=== PATIENT | male | born 2000 | race Caucasian/White ===

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

== ENCOUNTER 2021-09-23 10:46 | Emergency (ER) | payer OTHER ==
[~2021-09-23] VITALS: Ht 165.1 cm; Wt 56.7 kg
[~2021-09-23 10:46] MED LIST changes: +LORA-476 PO
[2021-09-23 10:47] VITALS: BP 142/95
--- NOTE | 2021-09-23 10:50 | NUR ---
PT AMBULATED TO BED 9 WITH STEADY GAIT
--- NOTE | 2021-09-23 10:54 | NUR ---
21 Y/O MALE BIB SELF FOR REFILL OF ATIVAN FOR ANXIETY, PER PT HE HAS BEEN OUT OF ATIVAN X6 MONTHS. CALLED HIS PSYCHIATRIST FOR A REFILLX2 AND THEY NEVER CALLED HIM BACK. STATES THAT HIS LAST PANIC ATTACK WAS 1 WEEK AGO. DENIES ANY FEELINGS OF ANXIETY AT THE MOMENT, DENIES ANY OTHER MEDICAL COMPLAINTS AT THIS TIME PMH: ANXIETY NKA
--- NOTE | 2021-09-23 11:08 | NUR ---
LAKISHA FISH AT BEDSIDE FOR FURTHER EVAL
[2021-09-23] MEDS ORDERED: HYDR25CA1 PO (11:20)
--- NOTE | 2021-09-23 11:40 | NUR ---
Patient discharged with v/s stable. Written and verbal after care instructions ABOUT PANIC ATTACK given and explained. Patient alert, oriented and verbalized understanding of instructions. Ambulatory with steady gait. All questions addressed prior to discharge. ID band removed. Patient advised to follow up with PMD. Rx of VISTARIL given. Patient educated on indication of medication including possible reaction and side effects. Opportunity to ask questions provided and answered.
== END 2021-09-23 11:40 | disposition home or self-care (01) ==
LOC: MED 10:46
DX: F41.9 Anxiety disorder, unspecified (principal); R03.0 Elevated blood-pressure reading, without diagnosis of hypertension; F32.9 Major depressive disorder, single episode, unspecified; Z76.0 Encounter for issue of repeat prescription; Z79.899 Other long term (current) drug therapy
CPT/HCPCS: 99281